=== PATIENT | female | born 1980 ===

== ENCOUNTER 2019-12-10 22:26 | Emergency (ER) | payer MEDICAID ==
[~2019-12-10] VITALS: Ht 160 cm; Wt 65.5 kg
[2019-12-10 22:29] VITALS: BP 179/98
--- NOTE | 2019-12-10 23:58 | NUR ---
TASK RN: PT. AMBULATORY TO ROOM FROM LOBBY AT THIS TIME.
[2019-12-11] MEDS ORDERED: HYDROcodone/APAP 5/325 TABLET ONE (00:05)
--- NOTE | 2019-12-11 00:07 | NUR ---
MEDICATED PER AUG. SLING IN PLACE.
[2019-12-11] MEDS ORDERED: FLUO10TA PO (00:12)
[2019-12-11] MEDS ORDERED: CLON0.5T PO (00:12)
[2019-12-11] MEDS ORDERED: HYDROcodone/APAP 5/325 TABLET PO ONE (00:30)
== END 2019-12-11 00:34 ==
LOC: ED 12-11 00:03
DX: S46.912A Strain of unspecified muscle, fascia and tendon at shoulder and upper arm level, left arm, initial encounter (principal); W01.0XXA Fall on same level from slipping, tripping and stumbling without subsequent striking against object, initial encounter; Y93.89 Activity, other specified; Y92.098 Other place in other non-institutional residence as the place of occurrence of the external cause; Y99.8 Other external cause status
CPT/HCPCS: 99283